=== PATIENT | male | born 1935 | race African-American/Black ===

== ENCOUNTER 2020-04-05 20:02 | Inpatient (IN) | payer OTHER ==
[~2020-04-05] VITALS: Ht 182.9 cm; Wt 81.6 kg
[~2020-04-05 20:02] MED LIST: ACCUPRIL40 MG; ACUPRIL; ATENOLOL100 MG PO; CARVEDILOL25 MG; GLIMEPIRIDE4 MG; METFORMIN HCL500 MG; NORVASC10 MG; PLETAL100 MG
[2020-04-05] MEDS ORDERED: DILANTIN30 MG (20:47)
[2020-04-05] MEDS ORDERED: LASIX20 MG (20:48)
[2020-04-05] MEDS ORDERED: AMIODARONE 200 MG (20:48)
[2020-04-05] MEDS ORDERED: PROTONIX40 MG (20:49)
[2020-04-05] MEDS ORDERED: ASTORVASTATIN (20:50)
[2020-04-05] MEDS ORDERED: LANTUS (20:52)
[2020-04-12] MEDS ORDERED: AMIODARONE HCL200 MG PO (11:01)
[2020-04-12] MEDS ORDERED: GABAPENTIN400 MG PO (11:01)
[2020-04-12] MEDS ORDERED: DILTIAZEM HCL30 MG (11:02)
[2020-04-12] MEDS ORDERED: ATORVASTATIN CA40 MG PO (11:02)
[2020-04-12] MEDS ORDERED: ZINC OXIDE60 GM (11:03)
== END 2020-04-14 20:20 | disposition expired | DRG 872 ==
LOC: ER 20:02 → SEC-K 04-06 11:06 → MEDJ 04-06 11:06
PROVIDERS: ADMIT Internal Medicine; ATTEND Internal Medicine
PROC: 30233N1 Transfusion of Nonautologous Red Blood Cells into Peripheral Vein, Percutaneous Approach (ICD-10-PCS; 2020-04-06)
PROC: CW1 Nuclear Medicine, Anatomical Regions, Planar Nuclear Medicine Imaging (ICD-10-PCS; 2020-04-07)
PROC: 3E0F7GC Introduction of Other Therapeutic Substance into Respiratory Tract, Via Natural or Artificial Opening (ICD-10-PCS; 2020-04-08)
PROC: 0HB6XZZ Excision of Back Skin, External Approach (ICD-10-PCS; 2020-04-09)
PROC: 0CJS8ZZ Inspection of Larynx, Via Natural or Artificial Opening Endoscopic (ICD-10-PCS; principal; 2020-04-13)
PROC: 05HY33Z Insertion of Infusion Device into Upper Vein, Percutaneous Approach (ICD-10-PCS; 2020-04-13)
DX: A41.9 Sepsis, unspecified organism (principal); N17.8 Other acute kidney failure; I48.19 Other persistent atrial fibrillation; L97.419 Non-pressure chronic ulcer of right heel and midfoot with unspecified severity; L98.429 Non-pressure chronic ulcer of back with unspecified severity; L89.159 Pressure ulcer of sacral region, unspecified stage; R65.20 Severe sepsis without septic shock; E11.9 Type 2 diabetes mellitus without complications; I12.9 Hypertensive chronic kidney disease with stage 1 through stage 4 chronic kidney disease, or unspecified chronic kidney disease; N18.3 Chronic kidney disease, stage 3 (moderate); Z74.01 Bed confinement status; Z93.0 Tracheostomy status; K52.89 Other specified noninfective gastroenteritis and colitis; D64.9 Anemia, unspecified; B96.4 Proteus (mirabilis) (morganii) as the cause of diseases classified elsewhere; B96.1 Klebsiella pneumoniae [K. pneumoniae] as the cause of diseases classified elsewhere; B95.2 Enterococcus as the cause of diseases classified elsewhere; B96.5 Pseudomonas (aeruginosa) (mallei) (pseudomallei) as the cause of diseases classified elsewhere; B96.89 Other specified bacterial agents as the cause of diseases classified elsewhere; B96.6 Bacteroides fragilis [B. fragilis] as the cause of diseases classified elsewhere; Z20.828 Contact with and (suspected) exposure to other viral communicable diseases